=== PATIENT | female | born 1990 | race Caucasian/White ===

== ENCOUNTER 2016-09-23 21:03 | Emergency (ER) | payer MEDICAID ==
[2016-09-23 21:25] VITALS: BP 129/66
[2016-09-23 21:57] LABS: CHLORIDE,CL 106 mmol/L (101-111); SODIUM,NA 138 mmol/L (135-145)
--- NOTE | 2016-09-23 22:03 | EDM.PDOC ---
ED HPI GENERAL MEDICAL PROBLEM - General Chief Complaint: STEM CRUSHER Problem Stated Complaint: HAVENT FELT BABY MOVE 15 WEEKS Time Seen by Provider: 09/23/16 21:30 History Limitations: Reports: No Limitations - History of Present Illness INITIAL COMMENTS - FREE TEXT/NARRATIVE: No movement fo rat least 24 hours, due , Estimates 15 weeks. US at 10 weeks and no problmes, OB visit with Dr. Diamond last week and everything ok. , SAB1 (at 6 weeks). Denies and urinary c/o, No cramping, spotting or other discharge. - Related Data Allergies Allergy/AdvReac Type Severity Reaction Status Date / Time No Known Allergies Allergy Verified 09/23/16 21:18 Home Meds: Home Meds Aspirin [Halfprin] 81 mg PO DAILY 09/23/16 [History] Vits #93/Iron Fum/FA [ Formula Tablet] 1 each PO DAILY [History] Past Medical History - Past Health History Medical/Surgical History: Denies Medical/Surgical History HEENT History: Reports: None Cardiovascular History: Reports: None Respiratory History: Reports: None Gastrointestinal History: Reports: None Genitourinary History: Reports: None STEM CRUSHER History: Reports: Musculoskeletal History: Reports: None Neurological History: Reports: None Psychiatric History: Reports: None Endocrine/Metabolic History: Reports: None Hematologic History: Reports: None Immunologic History: Reports: None Oncologic (Cancer) History: Reports: None Dermatologic History: Reports: None - Infectious Disease History Infectious Disease History: Reports: Chicken Pox Social & Family History - Family History Family Medical History: Noncontributory - Tobacco Use Smoking Status *Q: Never Smoker Second Hand Smoke Exposure: Yes - Recreational Drug Use Recreational Drug Use: No ED ROS GENERAL - Review of Systems Review Of Systems: See Below Constitutional: Reports: No Symptoms HEENT: Reports: No Symptoms Respiratory: Reports: No Symptoms Cardiovascular: Reports: No Symptoms Endocrine: Reports: No Symptoms GI/Abdominal: Reports: No Symptoms : Reports: Discharge (usual whitish), Other (estimated 15 weeks , with no movment, usual frequent flutters and nothing for at least past 24 hours). Denies: Dysuria, Frequency, Urgency Musculoskeletal: Reports: No Symptoms Skin: Reports: No Symptoms Neurological: Reports: No Symptoms ED EXAM - Physical Exam Exam: See Below Exam Limited By: No Limitations General Appearance: Alert, No Apparent Distress, Anxious Eye Exam: Bilateral Eye: EOMI Ears: Normal External Exam Nose: Normal Inspection Throat/Mouth: Normal Voice Neck: Normal Inspection Cardiovascular: Normal Peripheral Pulses, Regular Rate, Rhythm GI/Abdominal: Normal Bowel Sounds, Soft, Gravid Uterus (Female) Exam: Other (deferred) Heart Tones: Not [place] Movement: Not Appreciated Extremities: Normal Inspection, Normal Range of Motion Neurological: Alert, Oriented, Normal Cognition Psychiatric: Anxious Skin Exam: Warm, Dry, Intact, Normal Color Course - Vital Signs Text/Narrative:: ultrasound unavailable. Refer to [facility] ED for fourther evaluation with ultrasound to determine viability Last Recorded V/S: Last Vital Signs Temp 96.3 F 09/23/16 21:20 Pulse 91 09/23/16 21:20 Resp 18 09/23/16 21:20 BP 129/66 09/23/16 21:20 Pulse Ox 100 09/23/16 21:20 - Orders/Labs/Meds Labs: Laboratory Tests 09/23/16 09/23/16 09/23/16 Range/Units 21:30 21:30 21:30 WBC 11.6 H (5.0-10.0) 10^3/uL RBC 3.63 L (4.2-5.4) 10^6/uL Hgb 11.4 L (12.0-16.0) g/dL Hct 32.8 L (37.0-47.0) % MCV 90.4 (80-100) fL MCH 31.4 (27.0-34.0) pg MCHC 34.8 (33.0-35.0) g/dL Plt Count 354 (150-450) 10^3/uL Neut % (Auto) 67.8 (42.2-75.2) % Lymph % (Auto) 22.8 (20.5-50.1) % [place] % (Auto) 8.5 H (2-8) % Eos % (Auto) 0.7 L (1.0-3.0) % Baso % (Auto) 0.2 (0.0-1.0) % Sodium 138 (135-145) mmol/L Potassium 3.5 L (3.6-5.0) mmol/L Chloride 106 (101-111) mmol/L Carbon Dioxide 22.0 (21.0-31.0) mmol/L Anion Gap 13.5 BUN 8 (7-18) mg/dL Creatinine 0.5 L (0.6-1.3) mg/dL Est Cr Clr Drug Dosing 144.76 mL/min Estimated GFR (MDRD) > 60 Glucose 98 (74-105) mg/dL Calcium 8.5 (8.4-10.2) mg/dl HCG, Quant > 1370 H (0-25) mIU/ml Beta HCG, Quant 73173 mIU/ml Departure - Departure Time of Disposition: 22:00 Disposition: DC/Tfer to Acute Hospital 02 Condition: Undetermined Clinical Impression: Absent heart tones movement not palpable Qualifiers: Trimester: unspecified trimester Qualified Code(s): Z34.90 - Encounter for supervision of normal , unspecified, unspecified trimester - Discharge Information Forms: ED Department Discharge Additional Instructions: Present to [facility] ED for further evaluation with Ultrasound
== END 2016-09-23 22:07 ==
LOC: DL.ED 21:03
DX: O36.8920 Maternal care for other specified fetal problems, second trimester, not applicable or unspecified (principal); Z79.82 Long term (current) use of aspirin; Z79.899 Other long term (current) drug therapy; Z3A.15 15 weeks gestation of pregnancy
CPT/HCPCS: 36415; 80048; 84702; 85025; 99284

== ENCOUNTER 2017-03-16 19:41 | Inpatient (IN) | payer MEDICAID ==
[2017-03-16] MEDS ORDERED: Methylergonovine 0.2 MG/1 ML Amp IM PRN (21:54)
[2017-03-16] MEDS ORDERED: Lactated Ringers 500 ML IV ONE (21:54)
[2017-03-16] MEDS ORDERED: fentaNYL 100 MCG/2 ML SDV IVPUSH PRN (21:54)
[2017-03-16] MEDS ORDERED: Ondansetron 4 MG/2 ML SDV IV PRN (21:54)
[2017-03-16] MEDS ORDERED: Misoprostol 400 MCG (4 X 100 MCG TAB) RECTAL PRN (21:54)
[2017-03-16] MEDS ORDERED: Nalbuphine 20 MG/1 ML Amp IVPUSH PRN (21:54)
[2017-03-16] MEDS ORDERED: Sodium Chloride 0.9% 10 ML Syringe FLUSH PRN (21:54)
[2017-03-16] MEDS ORDERED: Acetaminophen 325 MG Tab PO PRN (21:54)
[2017-03-16] MEDS ORDERED: Carboprost Tromethamine 250 MCG/1 ML Amp IM PRN (21:54)
[2017-03-16] MEDS ORDERED: Lidocaine 1% 30 ML SDV INJECT PRN (21:54)
[2017-03-16] MEDS ORDERED: Oxytocin/Normal Saline 30 UNIT/500 ML BAG IV SCH (22:00)
[2017-03-17] MEDS: Lactated Ringers 1,000 ML IV SCH ×3 (02:00→05:03)
--- NOTE | 2017-03-17 02:51 | HP ---
CHIEF COMPLAINT: Painful contractions. HISTORY OF PRESENT ILLNESS: A 26-year-old 3, para 1-0-1-1, currently at 39 and 4/7 weeks of her . Dating is set by last menstrual period and 7 - week ultrasound. Reports around 2:30 this afternoon, she started having irregular contractions and now they are approximately every 4 minutes. She has also had increased lower pelvic pressure. Reports blurry vision started this morning and has progressed throughout the day. No specific headaches. No right upper quadrant pain. No nausea or vomiting. She has had some chest discomfort and shortness of breath mostly because the baby is taking up the space in the abdomen. She has had no change in the edema. No leakage of fluid or vaginal bleeding. movement has been good. No other acute concerns at this time. Hoping that she is ready for delivery. OBSTETRICAL HISTORY: 1. Delivered 07/17/2012, 40 weeks and 4 days' gestation. Term , delivered vaginally, and weighed 3118 g, 6 pounds 14 ounces male . No labor. Procedure performed under epidural anesthesia. The patient reports preeclampsia with that and his name is Margarito Cleaning. 2. 12/13/2015, approximately 6 weeks 2 days' gestation, had a spontaneous that resolved spontaneously. LABORATORY DATA: Blood type is A positive. She is antibody negative. Rubella immune. Syphilis serology nonreactive. Hepatitis B and HIV nonreactive. Gonorrhea and Chlamydia negative. TSH 2.45. Hepatitis C negative. Wet prep was negative. Pap smear was LSIL. Colposcopy with TEDDY 1 type findings. No biopsies were performed. Glucose tolerance test of 102. Group B strep test is negative. Most recent hemoglobin 12.0 on 02/22/2017 and platelets 356 on 02/22/2017. PAST MEDICAL HISTORY: Irregular periods, low-grade abnormal Pap smear, history of 1 miscarriage, history of preeclampsia in first , history of 3 tattoos and ear piercings. No IV drug use or blood transfusions. PAST SURGICAL HISTORY: None. FAMILY HISTORY: Mother and father both have hypertension. She has 5 sisters and no brothers who are all alive and well. Four grandparents are all alive. Both paternal grandparents have hypertension. Paternal grandfather also has coronary artery disease and recently underwent a 4-vessel bypass at age 75. No defects, cystic fibrosis, multiple births, anesthesia problems, bleeding problems, clotting disorders, or seizures. SOCIAL HISTORY: The patient has never smoked or used any tobacco products. Has not used any alcohol this . She is a [employer] [employer]. Father of the baby is Selvin Iglesias. He is healthy and works for [employer]. This will be their first child together. He has 2 daughters of his own, and she already has 1 son. REVIEW OF SYSTEMS: Pertinent positives and negatives under the history of present illness. We will add that she has not had any fever, chills, symptoms of upper respiratory infection, or urinary tract infection. No new numbness or tingling. New skin rashes or other acute concerns. OBJECTIVE: General: Pleasant 26-year-old female. She is afebrile. Initial blood pressure 139/94, retest of 141/85. Pulse of 90. Temperature is 99.0. Recheck blood pressure was down in the 120s systolic after the patient was lying on her side. HEENT: Head is normocephalic and atraumatic. Eyes, ears, nose, and mouth are all within normal limits to gross inspection. Neck: Supple without adenopathy. Heart: Regular without obvious murmur. Lungs: Clear to auscultation bilaterally. Abdomen: Soft. Gravid uterus. [place] is showing baseline heart rate of 130 beats per minute. Moderate bjvu-[id number] variability and accelerations noted. [place] shows contractions about every 6 minutes. Cervix examined, nurse's initial report 2.5 cm and 75% effaced. Upon my recheck, she was just over 3 cm, still 75% effaced, -2 station with bag of water intact. Extremities: 1+ edema bilaterally, worse on the right than on the left. Deep tendon reflexes are 2+ and equal. There is no clonus. Skin: Without any acute findings. ADMISSION LABORATORIES: PI[facility] panel has been ordered and is currently pending. ASSESSMENT: 1. A 39 and 4/7 weeks' intrauterine in early labor. 2. 3, para 1-0-1-1. 3. History of preeclampsia, prior . Currently complaining of blurry vision and maybe becoming preeclamptic once again. 4. Blood type O positive. Rubella immune. Group B strep negative. 5. History of miscarriage x1. 6. Low-grade squamous intraepithelial lesion on prior Pap smear. 7. Irregular periods. PLAN: At this time, the patient has been admitted to Labor and Delivery. We will get the initial lab work and see where things are at. Anticipate performing artificial rupture of membranes and having her receive an intrathecal when appropriate for pain management and anticipating vaginal delivery. Discussed with her continued monitoring for possible development of preeclampsia or eclampsia. Discussed with her potential outcomes of delivery. She has been asking appropriate questions which have been answered, and she verbalizes understanding. [facility] /[id number] CATHERINE
[2017-03-17] MEDS ORDERED: EPINEPHrine 1 MG/ML SDV ONE (03:59)
[2017-03-17] MEDS ORDERED: fentaNYL 100 MCG/2 ML SDV ONE (03:59)
--- NOTE | 2017-03-17 04:37 | PCM.PRNOTE ---
- Free Text/Narrative Note: Requested to provide analgesia to full term patient in severe pain. Upon entering the room, patient is lying on left side complaining of severe abdominal pain and discomfort. Procedure was discussed with patient including adverse outcomes and expectations. Pt consented to analgesia, SAB/IT. Pt placed into a sitting position. Landmarks for SAB/IT were identified and marked. Back was prepped with betadine x3. A sterile, transparent, fenestrated drape was applied. Excess betadine was removed. Using 3 mL of a 1% lidocaine solution, a skin wheel was placed at the L3/L4 interspace. A 24 ga (4 inch) Penc[place] spinal needle was inserted until positive for CSF. Negative for heme or paresthesias. Injected fentanyl 20 mcg, sufentanil 10 mcg, and 11.25 mg of a 0.75% bupivacaine solution with an epi wash. Pt was placed left lateral position for approximately 20 minutes. There were zero complications or adverse outcomes. Will continue to monitor.
[2017-03-17] MEDS ORDERED: Benzocaine/Menthol 20%-0.5% Spray 56 GM Canister TOP PRN (07:37)
[2017-03-17] MEDS ORDERED: Simethicone 80 MG Tab.Chew PO PRN (07:37)
[2017-03-17] MEDS ORDERED: Prenatal Multivitamin with Calcium/Folic Acid/Iron Tab PO SCH (09:00)
[2017-03-17] MEDS: Docusate Sodium 100 MG Cap PO PRN ×2 (09:33→19:58)
[2017-03-17] MEDS: Ibuprofen 800 MG Tab PO PRN ×2 (09:33→19:58)
[2017-03-17] MEDS ORDERED: fentaNYL 100 MCG/2 ML SDV ITHECAL ONE (15:34)
--- NOTE | 2017-03-18 04:25 | DEL ---
DATE: 03/17/2017 PREPROCEDURE DIAGNOSES: 1. A 39 and 5/7 weeks' gestation. 2. 3, para 1-0-1-1. 3. Blood type A positive, rubella immune, and group B strep negative. 4. History of preeclampsia of prior presenting with blurry vision today. 5. History of spontaneous . 6. LSIL on Pap smear. 7. History of irregular periods. 8. Early stage active labor. POSTPROCEDURE DIAGNOSES: 1. A 39 and 5/7 weeks' gestation. 2. 3, now para 2-0-1-2. 3. Blood type A positive, rubella immune, and group B strep negative. 4. History of preeclampsia of prior presenting with blurry vision today. 5. History of spontaneous . 6. LSIL on Pap smear. 7. History of irregular periods. 8. Early stage active labor. 9. Status post spontaneous vaginal delivery with second-degree laceration repair. BRIEF HISTORY: A 26-year-old with the above-listed diagnoses, presented to the hospital in early stages of labor and after we monitored for a period of time, she was making very slow progress and artificial rupture of membranes was performed. Helping with her labor, she then had an intrathecal for pain management and her contractions spaced out some. So, Pitocin was used to help augment labor. Ultimately, she labored for about 10 hours and was able to labor down some, so that she only needed to push for 3 minutes. PROCEDURE IN DETAIL: The patient in dorsal lithotomy position, she delivered a viable male infant over intact perineum. After pushing through only 1-1/2 contractions, nuchal cord was noted, but baby was coming too fast to reduce it and just delivered through and then the cord was unwound. Baby had strong instantaneous cry, so he was dried, stimulated, and placed upon mother's abdomen. Three-vessel umbilical cord was doubly clamped and then cut and cord blood sample obtained. Placenta was then delivered by gentle cord traction and concomitant uterine massage. The second-degree laceration was repaired with 3-0 Vicryl in the usual fashion without any complications. FINDINGS: Viable male infant, Apgars 9 and 9. weight 3580 g, 7 pounds, 14 ounces. Other vitals currently pending. ESTIMATED BLOOD LOSS: 250 mL. COMPLICATIONS: None. DISPOSITION: Mother and baby doing well and will remain in the room together at this time. [facility] /[id number]
[2017-03-18] MEDS: Docusate Sodium 100 MG Cap PO PRN (07:29)
[2017-03-18] MEDS: Ibuprofen 800 MG Tab PO PRN (07:30)
[2017-03-18 10:18] VITALS: BP 136/90
--- NOTE | 2017-03-23 01:09 | DISCH ---
ADMITTING DIAGNOSES: 1. A 39 and 4/7 weeks . 2. 3, para 1-0-1-1. 3. History of preeclampsia. 4. History of spontaneous . 5. History of low grade squamous intraepithelial lesion on Pap. 6. History of irregular periods. DISCHARGE DIAGNOSES: 1. A 39 and 4/7 weeks . 2. 3, now para 2-0-1-2. 3. History of preeclampsia. 4. History of spontaneous . 5. History of low grade squamous intraepithelial lesion on Pap. 6. History of irregular periods. PROCEDURES PERFORMED: Artificial rupture of membranes, spontaneous vaginal delivery, and second-degree laceration repair. BRIEF HISTORY: A 26-year-old female, admitted with the above listed diagnoses in active labor. She was prophylaxed with aspirin during her and did not develop preeclampsia. Labor lasted about 10 hours, and she pushed for about 3 minutes resulting in delivery of a viable male , weighing 7 pounds, 14 ounces, 3580 g with scores of 9 and 9. Delivery was without complications. An estimated blood loss was not that bad, and her starting hemoglobin was 12.8 and platelets of 343. Hospital course good. She has been breast feeding, which has improved since baby's tongue tie was clipped. She has been ambulating and tolerating regular diet and voiding without difficulties. Passing flatus. Denying any specific concerns and requesting discharge after 24 hours since delivery. DISCHARGE CONDITION: Good. PHYSICAL EXAMINATION: Vital Signs: Temperature is 98.2, pulse 72, blood pressure 136/90, previous was 118/67 and 127/76, respiratory rate of 16, and O2 saturations 99% on room air. Heart: Regular without murmur. Lungs: Clear to auscultation bilaterally. Abdomen: Soft without masses. Fundus is firm and below the umbilicus. Extremities: No erythema or tenderness noted. Edema is +1. DISCHARGE DISPOSITION: Home with family. MEDICATIONS: 1. [id number]-[id number] ibuprofen. 2. Tylenol as needed for pain or discomfort. 3. She can use iron once daily and complete what she has at home. 4. She continues her vitamins while breast-feeding. FOLLOWUP: She will make a 6-week followup appointment otherwise only if needed. INSTRUCTIONS: Normal post vaginal delivery instructions provided, and all of her questions answered. [facility] /[id number] CATHERINE
== END 2017-03-18 14:20 | disposition home or self-care (01) | DRG 775 ==
LOC: DL.OBCHECK 19:41 → DL.OB 22:01 → OBSVTOIN 03-17 07:08
PROVIDERS: ADMIT Family Medicine; ATTEND Family Medicine
PROC: 10E0XZZ Delivery of Products of Conception, External Approach (ICD-10-PCS; principal; 2017-03-17)
PROC: 0KQM0ZZ Repair Perineum Muscle, Open Approach (ICD-10-PCS; 2017-03-17)
PROC: 10907ZC Drainage of Amniotic Fluid, Therapeutic from Products of Conception, Via Natural or Artificial Opening (ICD-10-PCS; 2017-03-17)
DX: O70.1 Second degree perineal laceration during delivery (principal); Z37.0 Single live birth; O69.1XX0 Labor and delivery complicated by cord around neck, with compression, not applicable or unspecified; H53.8 Other visual disturbances; R87.619 Unspecified abnormal cytological findings in specimens from cervix uteri; Z3A.39 39 weeks gestation of pregnancy
CPT/HCPCS: 01967; 36415; 59300; 59409; 81003; 82565; 82570; 83615; 84075; 84156; 84450; 84520; 84550; 85027; A9270-GY; J2405; J2590; J3010; J7120

== ENCOUNTER 2017-06-26 18:53 | Emergency (ER) | payer MEDICAID ==
[2017-06-26 19:18] VITALS: BP 116/83
--- NOTE | 2017-06-26 20:14 | EDM.PDOC ---
ED HPI GENERAL MEDICAL PROBLEM - General Chief Complaint: Upper Extremity Injury/Pain Stated Complaint: ARM PAIN [id number] Time Seen by Provider: 06/26/17 20:09 Source of Information: Reports: Patient History Limitations: Reports: No Limitations - History of Present Illness INITIAL COMMENTS - FREE TEXT/NARRATIVE: fell today while emptying trash. Right Lower Arm Pain Score (Numeric/FACES): 8 - Related Data Allergies Allergy/AdvReac Type Severity Reaction Status Date / Time No Known Allergies Allergy Verified 06/26/17 19:11 Home Meds: Home Meds Acetaminophen [Tylenol] 650 mg PO Q4H PRN tablet 03/18/17 [Rx] Ibuprofen [IJD: Ibuprofen] 800 mg PO Q8H PRN tablet 03/18/17 [Rx] Sertraline [Zoloft] 1 tab PO DAILY 06/26/17 [History] Past Medical History - Past Health History Medical/Surgical History: Denies Medical/Surgical History HEENT History: Reports: None Cardiovascular History: Reports: Other (See Below) Other Cardiovascular History: preeclampsia first Respiratory History: Reports: None Gastrointestinal History: Reports: None Genitourinary History: Reports: None 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: Musculoskeletal History: Reports: None Neurological History: Reports: None Psychiatric History: Reports: Depression Endocrine/Metabolic History: Reports: None Hematologic History: Reports: None Immunologic History: Reports: None Oncologic (Cancer) History: Reports: Other (See Below) Other Oncologic History: 06/2006 low grade squamous intraepithelial lesion on cervical pap smear Dermatologic History: Reports: None - Infectious Disease History Infectious Disease History: Reports: Other (See Below) Other Infectious Disease History: genital warts complicating second trimester 10/23/2016 - Past Surgical History Cardiovascular Surgical History: Reports: None Social & Family History - Family History Family Medical History: Noncontributory - Tobacco Use Smoking Status *Q: Unknown Ever Smoked Second Hand Smoke Exposure: No - Caffeine Use Caffeine Use: Reports: Coffee, Soda - Recreational Drug Use Recreational Drug Use: No Review of Systems - Review of Systems Review Of Systems: ROS reveals no pertinent complaints other than HPI. ED EXAM, GENERAL - Physical Exam Exam: See Below Exam Limited By: No Limitations General Appearance: Alert, WD/WN, Mild Distress, Other (pain. ) Ears: Hearing Grossly Normal Throat/Mouth: Normal Voice, No Airway Compromise Head: Atraumatic Neck: Non-Tender, Full Range of Motion Respiratory/Chest: No Respiratory Distress Cardiovascular: Regular Rate, Rhythm GI/Abdominal: Soft, Non-Tender Extremities: Other (right elbow minimal swelling, no gross D/D, mild tenderness to R/P, NV wnl.) Neurological: Alert, Oriented, Normal Cognition, Normal Gait, No Motor/Sensory Deficits Psychiatric: Flat Affect Skin Exam: Warm, Dry, Normal Color Lymphatic: No Adenopathy Course - Vital Signs Last Recorded V/S: Last Vital Signs Temp 36.8 C 06/26/17 19:12 Pulse 74 06/26/17 19:12 Resp 18 06/26/17 19:12 BP 116/83 06/26/17 19:12 Pulse Ox 100 06/26/17 19:12 - Orders/Labs/Meds Orders: Active Orders 24 hr Category Date Time Status Forearm 2V Rt [CR] Urgent Exams 06/26/17 19:05 Taken - Re-Assessments/Exams Free Text/Narrative Re-Assessment/Exam: 06/26/17 20:11 results discussed with pt. Departure - Departure Time of Disposition: 20:12 Disposition: Home, Self-Care 01 Condition: Good Clinical Impression: Contusion of elbow, right Qualifiers: Encounter type: initial encounter Qualified Code(s): S50.01XA - Contusion of right elbow, initial encounter - Discharge Information Instructions: Elbow Contusion, [id number] Additional Instructions: 1) ice to swelling 2) avoid use of right arm next 48 hours 3) recheck if there is any change or concern 4) take motrin or tylenol for pain - My Orders Last 24 Hours: My Active Orders 06/26/17 19:05 Forearm 2V Rt [CR] Urgent - Assessment/Plan Last 24 Hours: My Active Orders 06/26/17 19:05 Forearm 2V Rt [CR] Urgent
== END 2017-06-26 20:17 | disposition home or self-care (01) ==
LOC: DL.ED 18:53
DX: S50.01XA Contusion of right elbow, initial encounter (principal); Z79.899 Other long term (current) drug therapy; W19.XXXA Unspecified fall, initial encounter
CPT/HCPCS: 73090-RT; 99283

== ENCOUNTER 2021-01-26 10:28 | Emergency (ER) | payer BC, MEDICAID ==
[2021-01-26] MEDS ORDERED: Sodium Chloride 0.9% 10 ML Syringe FLUSH PRN (13:24)
--- NOTE | 2021-01-26 13:31 | EDM.PDOC ---
ED HPI GENERAL MEDICAL PROBLEM - General Stated Complaint: COVID POSITIVE Time Seen by Provider: 01/26/21 13:26 Source of Information: Reports: Patient History Limitations: Reports: No Limitations - History of Present Illness INITIAL COMMENTS - FREE TEXT/NARRATIVE: 30 y/o F c/o increased sob and new onset cp since early this morning. Pt was diagnosed with COVID on and received the monoclonal antibody infusion a few days ago. Pt states he symptoms have been improving up until this monring where she developed chest pressure center chest non radiating. Breathing feels more labored with productive yellow cough. She reports fever, chills, loss of taste and smell. She denies joaquin, vision prob, neck pn, abd pn, nvd, extremity pn. Generalized Pain Score (Numeric/FACES): 5 - Related Data Allergies Allergy/AdvReac Type Severity Reaction Status Date / Time No Known Allergies Allergy Verified 06/26/17 19:11 Home Meds: Home Meds Acetaminophen [Tylenol] 650 mg PO Q4H PRN tablet 03/18/17 [Rx] Ibuprofen [IJD: Ibuprofen] 800 mg PO Q8H PRN tablet 03/18/17 [Rx] Sertraline [Zoloft] 1 tab PO DAILY 06/26/17 [History] Past Medical History - Past Health History Medical/Surgical History: Denies Medical/Surgical History HEENT History: Reports: None Cardiovascular History: Reports: Other (See Below) Other Cardiovascular History: preeclampsia first Respiratory History: Reports: None Gastrointestinal History: Reports: None Genitourinary History: Reports: None 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: Musculoskeletal History: Reports: None Neurological History: Reports: None Psychiatric History: Reports: Depression Endocrine/Metabolic History: Reports: None Hematologic History: Reports: None Immunologic History: Reports: None Oncologic (Cancer) History: Reports: Other (See Below) Other Oncologic History: 06/2006 low grade squamous intraepithelial lesion on cervical pap smear Dermatologic History: Reports: None - Infectious Disease History Infectious Disease History: Reports: Other (See Below) Other Infectious Disease History: genital warts complicating second trimester 10/23/2016 - Past Surgical History Cardiovascular Surgical History: Reports: None Social & Family History - Family History Family Medical History: No Pertinent Family History - Caffeine Use Caffeine Use: Reports: Coffee, Soda ED ROS GENERAL - Review of Systems Review Of Systems: Comprehensive ROS is negative, except as noted in HPI. ED EXAM, GENERAL - Physical Exam Exam: See Below Exam Limited By: No Limitations General Appearance: Alert, Anxious Eye Exam: Bilateral Eye: PERRL Nose: Normal Inspection, Normal Mucosa, No Blood Throat/Mouth: Normal Inspection, Normal Lips, Normal Teeth, Normal Gums, Normal Oropharynx, Normal Voice, No Airway Compromise Head: Atraumatic, Normocephalic Neck: Normal Inspection, Supple, Non-Tender, Full Range of Motion Respiratory/Chest: No Respiratory Distress, Lungs Clear, Normal Breath Sounds Cardiovascular: Normal Peripheral Pulses, Tachycardia GI/Abdominal: Soft, Non-Tender (Female) Exam: Deferred Rectal (Female) Exam: Deferred Back Exam: Normal Inspection, Full Range of Motion Extremities: Normal Inspection, Normal Range of Motion, Non-Tender, Normal Capillary Refill, No Pedal Edema Neurological: Alert, Oriented Psychiatric: Anxious Skin Exam: Warm, Dry, Intact #1 Interpretation EKG Date: 01/26/21 Rhythm: Other (sinus) [place]: Normal P-Wave: Present QRS: Normal ST-T: Normal QT: Normal Course - Vital Signs Last Recorded V/S: Last Vital Signs Temp 98.2 F 01/26/21 13:54 Pulse 93 01/26/21 13:54 Resp 14 01/26/21 13:54 BP 136/85 01/26/21 13:54 Pulse Ox 98 01/26/21 13:54 - Orders/Labs/Meds Orders: Active Orders 24 hr Category Date Time Status Peripheral IV Care [RC] . DIRECTED Care 01/26/21 13:25 Active Sodium Chloride 0.9% [Saline Flush] Med 01/26/21 13:24 Active 10 ml FLUSH ASDIRECTED PRN Peripheral IV Insertion Adult [OM.PC] Routine Oth 01/26/21 13:25 Ordered Medication Orders Sodium Chloride (Sodium Chloride 0.9% 10 Ml Syringe) 10 ml FLUSH ASDIRECTED PRN PRN Reason: Keep Vein Open Last Admin: 01/26/21 14:01 Dose: 10 ml Documented by: ANAHI Labs: Laboratory Tests 01/26/21 01/26/21 01/26/21 Range/Units 14:00 14:00 14:00 WBC 7.0 (5.0-10.0) 10^3/uL RBC 4.72 (4.2-5.4) 10^6/uL Hgb 14.2 (12.0-16.0) g/dL Hct 41.9 (37.0-47.0) % MCV 88.8 (80-100) fL MCH 30.1 (27.0-34.0) pg MCHC 33.9 (33.0-35.0) g/dL Plt Count 356 (150-450) 10^3/uL Neut % (Auto) 80.2 H (42.2-75.2) % Lymph % (Auto) 15.1 L (20.5-50.1) % [place] % (Auto) 4.7 (2-8) % Eos % (Auto) 0.0 L (1.0-3.0) % Baso % (Auto) 0.0 (0.0-1.0) % D-Dimer, Quantitative 184 (0-400) ng/mL Sodium 139 (136-145) mmol/L Potassium 4.3 (3.5-5.1) mmol/L Chloride 104 (98-107) mmol/L Carbon Dioxide 24 (21-32) mmol/L Anion Gap 15.3 H (7-13) mEq/L BUN 8 (7-18) mg/dL Creatinine 0.70 (0.55-1.02) mg/dL Est Cr Clr Drug Dosing TNP Estimated GFR (MDRD) > 60 BUN/Creatinine Ratio 11.4 (No establ ref range) Glucose 85 (70-99) mg/dL Calcium 8.4 L (8.5-10.1) mg/dL Total Bilirubin 0.4 (0.2-1.0) mg/dL AST 26 (15-37) U/L ALT 60 H (14-59) U/L Alkaline Phosphatase 52 (46-116) U/L C-Reactive Protein 3.4 H (0.0-0.9) mg/dL Total Protein 7.6 (6.4-8.2) g/dL Albumin 3.1 L (3.4-5.0) g/dL Globulin 4.5 Albumin/Globulin Ratio 0.69 Meds: Medications Generic Name Dose Route Start Last Admin Trade Name Freq PRN Reason Stop Dose Admin Sodium Chloride 10 ml 01/26/21 13:24 01/26/21 14:01 Sodium Chloride 0.9% 10 Ml Syringe FLUSH 10 ml ASDIRECTED PRN Administration Keep Vein Open - Re-Assessments/Exams Free Text/Narrative Re-Assessment/Exam: 01/26/21 14:54 I disucussed the exam, labs and ekg findings with the pt and expalined that she has very little risk for a PE and that her WBC count is normal. The pt feels relief in her symptoms after spending some time in the ER. She states she beleives she may have had an anxiety attack. Departure - Departure Time of Disposition: 14:55 Disposition: Home, Self-Care 01 Condition: Good Clinical Impression: COVID - Discharge Information *PRESCRIPTION DRUG MONITORING PROGRAM REVIEWED*: Not Applicable *COPY OF PRESCRIPTION DRUG MONITORING REPORT IN PATIENT CHULA: Not Applicable Instructions: 10 Things You Can Do to Manage Your COVID-19 Symptoms at Home - [facility] (10/18/2020) Additional Instructions: If any new symptoms or concerns develop contact your primary care facility or return to the ER. Sepsis Event Note (ED) - Focused Exam Vital Signs: Vital Signs Temp Pulse Resp BP Pulse Ox 01/26/21 13:54 98.2 F 93 14 136/85 98 - My Orders Last 24 Hours: My Active Orders 01/26/21 13:24 Sodium Chloride 0.9% [Saline Flush] 10 ml FLUSH ASDIRECTED PRN 01/26/21 13:25 Peripheral IV Care [RC] . DIRECTED Peripheral IV Insertion Adult [OM.PC] Routine - Assessment/Plan Last 24 Hours: My Active Orders 01/26/21 13:24 Sodium Chloride 0.9% [Saline Flush] 10 ml FLUSH ASDIRECTED PRN 01/26/21 13:25 Peripheral IV Care [RC] . DIRECTED Peripheral IV Insertion Adult [OM.PC] Routine
[2021-01-26 13:59] VITALS: BP 136/85; PULSE 93
[2021-01-26 14:44] LABS: ANION GAP 15.3 mEq/L (7-13); CHLORIDE,CL 104 mmol/L (98-107); SODIUM,NA 139 mmol/L (136-145)
== END 2021-01-26 15:11 | disposition home or self-care (01) ==
LOC: DL.ED 10:28
DX: U07.1 COVID-19 (principal)
CPT/HCPCS: 36415; 80053; 85025; 85379; 86140; 93005; 99285-25

== ENCOUNTER 2021-04-19 22:07 | Emergency (ER) | payer BC ==
[2021-04-19 23:31] LABS: CORONAVIRUS COVID-19 NAA POSITIVE (NEGATIVE)
[2021-04-19 23:48] VITALS: PULSE 129
== END 2021-04-20 01:30 | disposition home or self-care (01) ==
LOC: DL.ED 22:07
DX: U07.1 COVID-19 (principal)
CPT/HCPCS: 0240U; 99283

== ENCOUNTER 2021-06-29 09:42 | Emergency (ER) | payer BC ==
[2021-06-29 10:25] VITALS: BP 144/105; PULSE 122
== END 2021-06-29 11:09 | disposition home or self-care (01) ==
LOC: DL.ED 09:42
DX: J02.8 Acute pharyngitis due to other specified organisms (principal)
CPT/HCPCS: 87081; 87430; 99283

== ENCOUNTER 2022-04-21 00:01 | Inpatient (IN) | payer BC ==
[~2022-04-21 00:01] MED LIST: Acetaminophen 325 MG Tab PO PRN; Carboprost Tromethamine 250 MCG/1 ML Amp IM PRN; Famotidine 20 MG/2 ML SDV IVPUSH PRN; Lactated Ringers 1,000 ML IV ONE; Lactated Ringers 500 ML IV SCH; Lidocaine 1% 30 ML SDV INJECT PRN; Methylergonovine 0.2 MG/1 ML Amp IM PRN; Misoprostol 400 MCG (4 X 100 MCG TAB) RECTAL PRN; Naloxone 2 MG/2 ML Syringe IVPUSH PRN; Ondansetron 4 MG/2 ML SDV IVPUSH PRN; Oxytocin/Normal Saline 30 UNIT/500 ML BAG IV SCH; Promethazine 25 MG/ML SDV IM PRN; Sodium Chloride 0.9% 10 ML Syringe FLUSH PRN; Tranexamic Acid 1,000 MG in Sodium Chloride 0.9% 100 ML IV PRN; ePHEDrine 50 MG/ML SDV IVPUSH PRN; fentaNYL 100 MCG/2 ML SDV IVPUSH PRN
[2022-04-21] MEDS: Misoprostol 25 MCG (1/4 of 100 MCG) Tab VAG PRN ×2 (00:39→07:30)
[2022-04-21] MEDS: Misoprostol 25 MCG (1/4 of 100 MCG) Tab PO PRN ×2 (00:39→07:47)
[2022-04-21] MEDS: Lactated Ringers 1,000 ML IV SCH ×3 (07:30→18:10)
[2022-04-21] MEDS ORDERED: Nalbuphine 20 MG/1 ML Amp ONE (09:10)
[2022-04-21] MEDS ORDERED: Nalbuphine 20 MG/1 ML Amp IM PRN (09:30)
[2022-04-21] MEDS: Oxytocin/Normal Saline 30 UNIT/500 ML BAG IV SCH ×2 (12:20→21:05)
[2022-04-21] MEDS ORDERED: Morphine PF 10 MG/10 ML SDV IT ONE (13:14)
[2022-04-21] MEDS ORDERED: Dexmedetomidine 200 MCG/2 ML SDV IT ONE (13:14)
[2022-04-21] MEDS ORDERED: Morphine PF 10 MG/10 ML SDV ONE (18:08)
[2022-04-21] MEDS ORDERED: Simethicone 80 MG Tab.Chew PO PRN (20:36)
[2022-04-21] MEDS ORDERED: Tranexamic Acid 1,000 MG in Sodium Chloride 0.9% 100 ML IV PRN (20:36)
[2022-04-21] MEDS ORDERED: Carboprost Tromethamine 250 MCG/1 ML Amp IM PRN (20:36)
[2022-04-21] MEDS ORDERED: Acetaminophen 325 MG Tab PO PRN (20:36)
[2022-04-21] MEDS ORDERED: Benzocaine/Menthol 20%-0.5% Spray 78 GM Cannister TOP PRN (20:36)
[2022-04-21] MEDS ORDERED: Misoprostol 400 MCG (4 X 100 MCG TAB) RECTAL PRN (20:36)
[2022-04-21] MEDS: Docusate Sodium 100 MG Cap PO PRN (21:35)
[2022-04-21] MEDS: Venlafaxine 37.5 MG Cap.ER PO SCH (21:35)
[2022-04-22] MEDS ORDERED: Witch Hazel Medicated Pads 100/Jar TOP PRN (05:11)
[2022-04-22] MEDS: Ibuprofen 800 MG Tab PO PRN ×2 (05:25→18:04)
[2022-04-22] MEDS: Ferrous Sulfate 325 MG Tab PO SCH (09:03)
[2022-04-22] MEDS: Prenatal Multivitamin with Calcium/Folic Acid/Iron Tab PO SCH (09:03)
[2022-04-22] MEDS: Docusate Sodium 100 MG Cap PO PRN (21:42)
[2022-04-22] MEDS: Venlafaxine 37.5 MG Cap.ER PO SCH (21:42)
[2022-04-23] MEDS: Prenatal Multivitamin with Calcium/Folic Acid/Iron Tab PO SCH (08:35)
[2022-04-23] MEDS: Ibuprofen 800 MG Tab PO PRN (08:35)
[2022-04-23] MEDS: Docusate Sodium 100 MG Cap PO PRN (08:35)
[2022-04-23] MEDS: Ferrous Sulfate 325 MG Tab PO SCH (08:35)
[2022-04-23 09:07] VITALS: BP 146/83; PULSE 78
== END 2022-04-23 13:15 | disposition home or self-care (01) | DRG 560 ==
LOC: DL.OB 00:01 → OBSVTOIN 20:35
PROVIDERS: ADMIT Family Medicine; ATTEND Family Medicine
PROC: 10E0XZZ Delivery of Products of Conception, External Approach (ICD-10-PCS; principal; 2022-04-21)
PROC: 009U3ZZ Drainage of Spinal Canal, Percutaneous Approach (ICD-10-PCS; 2022-04-21)
PROC: 0HQ9XZZ Repair Perineum Skin, External Approach (ICD-10-PCS; 2022-04-21)
PROC: 10907ZC Drainage of Amniotic Fluid, Therapeutic from Products of Conception, Via Natural or Artificial Opening (ICD-10-PCS; 2022-04-21)
DX: O13.4 Gestational [pregnancy-induced] hypertension without significant proteinuria, complicating childbirth (principal); Z3A.37 37 weeks gestation of pregnancy; Z37.0 Single live birth; D62 Acute posthemorrhagic anemia; O99.214 Obesity complicating childbirth; E66.9 Obesity, unspecified; O99.344 Other mental disorders complicating childbirth; F41.8 Other specified anxiety disorders; F41.0 Panic disorder [episodic paroxysmal anxiety]; O62.3 Precipitate labor; O70.0 First degree perineal laceration during delivery; O99.02 Anemia complicating childbirth; Z20.822 Contact with and (suspected) exposure to COVID-19; Z86.16 Personal history of COVID-19
CPT/HCPCS: 36415; 51701; 59025; 59200; 59409; 62320; 85027; A9270-GY; J2270; J2300; J2405; J2590; J3490; J7120; U0002